=== PATIENT | male | born 1985 | race Caucasian/White ===

== ENCOUNTER 2023-09-28 13:10 | Emergency (ER) | payer SELFPAY ==
[~2023-09-28] VITALS: Ht 177.8 cm; Wt 64.7 kg
[2023-09-28] MEDS ORDERED: IBUP1TAB7 PO (13:17)
[2023-09-28 15:41] VITALS: BP 140/80; TEMP 98.7; O2SAT 98
[2023-09-28] MEDS: IBUPROFEN 600MG TAB PO ONE (15:44)
== END 2023-09-28 15:53 | disposition home or self-care (01) ==
LOC: M ED 13:10
DX: S76.112A Strain of left quadriceps muscle, fascia and tendon, initial encounter (principal); W19.XXXA Unspecified fall, initial encounter; Y92.009 Unspecified place in unspecified non-institutional (private) residence as the place of occurrence of the external cause; Y93.89 Activity, other specified; Y99.9 Unspecified external cause status; Z79.1 Long term (current) use of non-steroidal anti-inflammatories (NSAID); M25.462 Effusion, left knee